=== PATIENT | male | born 1985 | race Caucasian/White ===

== ENCOUNTER 2021-06-01 19:12 | Inpatient (IN) ==
[2021-06-01 22:25] LABS: ABS Basophils 0.1 10^3/ul (0-0.2); ABS Eosinophils 0.1 10^3/ul (0-0.6); ABS Monocytes 0.6 10^3/ul (0-0.8); ABS Neutrophils 7.7 10^3/ul (1.5-7.7); Eosinophil % 0.8 %; Hematocrit 44 % (42-52); Lymphocyte % 26.2 %; Mean Corpuscular HGB Conc 34 g/dL (31-36); Mean Corpuscular Hemoglobin 32 pg (27-31); Mean Corpuscular Volume 94 fL (80-94); Mean Platelet Volume 9.5 fL (7.4-10.4); Platelet Count 241 10^3/uL (150-450); Red Blood Count 4.67 10^6 /uL (4.18-5.48); Red Cell Distribution Width 13 % (10-15); White Blood Count 11.5 10^3/uL (3.5-10.8)
[2021-06-01 22:29] LABS: Urine Appearance Cloudy; Urine Bilirubin Negative (Negative); Urine Blood Negative (Negative); Urine Color Amber; Urine Glucose Negative (Negative); Urine Ketones 1+ (Negative); Urine Nitrite Negative (Negative); Urine Protein 1+(30 mg/dL) (Negative); Urine Specific Gravity 1.032 (1.002-1.030); Urine Urobilinogen Negative (Negative)
[2021-06-01 22:32] LABS: Urine Bacteria Absent (Absent); Urine Red Blood Cell Trace(0-2/hpf) (Absent); Urine White Blood Cell Trace(0-5/hpf) (Absent)
[2021-06-01 22:44] LABS: ALT 30 U/L (7-52); AST 16 U/L (13-39); Albumin 4.6 g/dL (3.2-5.2); Alkaline Phosphatase 66 U/L (35-149); Anion Gap 8 mmol/L (2-11); Blood Urea Nitrogen 16 mg/dL (6-24); CO2 Carbon Dioxide 26 mmol/L (22-32); Calcium 9.2 mg/dL (8.6-10.3); Chloride 105 mmol/L (101-111); EGFR African American 91.8 (>60); EGFR Non-African American 75.8 (>60); Globulin 2.3 g/dL (2-4); Glucose 100 mg/dL (70-100); Potassium 3.7 mmol/L (3.5-5.0); Sodium 139 mmol/L (135-145); Total Protein 6.9 g/dL (6.4-8.9)
[2021-06-01 22:48] LABS: Urine Benzodiazepine Screen None Detected (None Detect); Urine Cannabinoids Screen Presumptive Positive (None Detect); Urine Opiates Screen None Detected (None Detect)
[2021-06-01 22:50] LABS: Alcohol, S < 13 mg/dL (<13); Salicylate < 2.50 mg/dL (<30)
[2021-06-01 23:04] LABS: TSH Ultra Thyroid Stim Horm 1.92 mcIU/mL (0.34-5.60)
[2021-06-01 23:06] LABS: Acetaminophen < 15 mcg/mL
[2021-06-02 13:03] LABS: Rapid COVID-19 Molecular Undetected (Undetected)
[2021-06-02] MEDS ORDERED: Lorazepam PYXIS KEY PRN (13:07)
[2021-06-02] MEDS ORDERED: diPHENhydraMINE IV 50 MG/ML 1 ml VIAL (BENADRYL) IM ONE (13:07)
[2021-06-02] MEDS ORDERED: LORazepam 2 mg VIAL 1 ml IM ONE (13:07)
[2021-06-02] MEDS ORDERED: Haloperidol 5 mg/ml SDV IV/IM 5 MG/ML AMP IM ONE (13:07)
[2021-06-02] MEDS ORDERED: Al Hydrox/Mg Hydrox/Simet LIQ 30 ML UDC PO PRN (14:46)
[2021-06-05] MEDS ORDERED: chlorproMAZINE 25 MG/ML 2 ML (50 MG) ONE (08:34)
[2021-06-07] MEDS ORDERED: OLANzapine 5 mg TAB*ODT PO PRN (14:36)
[2021-06-19] MEDS ORDERED: Paliperidone SUSTENNA 234 MG/1.5 ML IM ONE (16:00)
[2021-06-22 08:25] LABS: HDL Cholesterol 69.6 mg/dL
[2021-06-22 08:38] LABS: Lithium 0.24 mmol/L (0.6-1.2)
[2021-06-23] MEDS ORDERED: Paliperidone SUSTENNA 156 MG/1 ML IM ONE (08:00)
[2021-06-29] MEDS: diPHENhydraMINE 25 mg TAB PO PRN (19:48)
[2021-06-30] MEDS: diPHENhydraMINE 25 mg TAB PO PRN ×2 (14:03→20:14)
[2021-07-01] MEDS: diPHENhydraMINE 25 mg TAB PO PRN ×2 (09:07→20:08)
[2021-07-02] MEDS: diPHENhydraMINE 25 mg TAB PO PRN ×2 (08:10→19:50)
[2021-07-03] MEDS: diPHENhydraMINE 25 mg TAB PO PRN ×2 (08:11→19:33)
[2021-07-04] MEDS: diPHENhydraMINE 25 mg TAB PO PRN ×2 (08:36→19:47)
[2021-07-05] MEDS: diPHENhydraMINE 25 mg TAB PO PRN ×2 (08:20→19:30)
[2021-07-06] MEDS: diPHENhydraMINE 25 mg TAB PO PRN ×2 (08:40→20:23)
[2021-07-07] MEDS: diPHENhydraMINE 25 mg TAB PO PRN ×2 (09:40→19:46)
[2021-07-08] MEDS: diPHENhydraMINE 25 mg TAB PO PRN ×2 (08:16→20:37)
[2021-07-09 07:38] VITALS: BP 115/71
[2021-07-09] MEDS: diPHENhydraMINE 25 mg TAB PO PRN (08:11)
== END 2021-07-09 11:30 | DRG 750 ==
LOC: ED 19:12 → BSU 06-02 14:46
PROVIDERS: ADMIT Psychiatry & Neurology Psychiatry; ATTEND Psychiatry & Neurology Psychiatry